=== PATIENT | female | born 1980 | race Caucasian/White ===

== ENCOUNTER 2021-05-16 17:05 | Observation (INO) ==
[2021-05-16] MEDS ORDERED: PIPERACILLIN SODIUM/TAZOBACTAM 4.5 GM in DEXTROSE 5% IN WATER 50 ML IV ONE (17:59)
[2021-05-16] MEDS ORDERED: morphine 4 MG/ML VIAL IV ONE (17:59)
[2021-05-16] MEDS ORDERED: ONDANSETRON 4 MG/2 ML VIAL IV ONE (17:59)
[2021-05-16] MEDS ORDERED: 0.9 % SODIUM CHLORIDE 1,000 ML IV ONE ×2 (17:59→18:01)
--- NOTE | 2021-05-16 18:02 | Emergency Department Note ---
HPI General Chief complaint: Abdominal Pain Stated complaint: Abdominal Pain Time Seen by Provider: 05/16/21 17:59 Source: patient Mode of arrival: ambulatory Limitations: no limitations History of Present Illness HPI Narrative: 40-year-old female with no abdominal surgical history presents with abdominal pain since Sunday. Nausea decreased appetite. No vomiting. Normal stools. No urinary symptoms of dysuria urgency frequency hematuria. No fevers or chills. States that it initially started vague mid abdomen and then began to migrate right lower quadrant. Seen as an outpatient. Labs urine were obtained as well as an outpatient CT scan. Labs did show leukocytosis at 19,000. Otherwise unremarkable. Urine analysis showed blood no infection. was negative. CT abdomen pelvis did show a simple appendicitis. No mention of perforation abscess. And she was sent to the ER for further evaluation. Has been taking [id number] Excedrin for pain control Related Data Home Medications Medication Instructions Recorded Confirmed lamotrigine 100 mg tablet 200 mg PO BID tab 06/16/20 05/16/21 (Lamictal) buspirone 5 mg tablet 5 mg PO BID 05/16/21 05/16/21 clonazepam 0.5 mg tablet See Rx Instructions PO QHS tab 05/16/21 05/16/21 gabapentin 300 mg capsule 100 mg PO BID cap 05/16/21 05/16/21 lithium carbonate 750 mg PO QHS 05/16/21 05/16/21 Allergies Allergy/AdvReac Type Severity Reaction Status Date / Time clindamycin [From Cleocin] Allergy Intermediate Unknown Verified 05/16/21 17:10 Review of Systems ROS ROS Narrative: 10 point review of system is otherwise negative except as mentioned in HPI. PFSH Narrative Patient History Narrative: Narrative: Medical/Surgical/Family History All Active Problems RLQ abdominal pain (Acute) GERD (gastroesophageal reflux disease) (Acute) IBS (irritable bowel syndrome) (Acute) Fatigue (Chronic) Panic attacks (Chronic) Allergy (Chronic) Weakness (Chronic) GERD (gastroesophageal reflux disease) (Chronic) Bipolar disorder (Chronic) Arthritis (Chronic) Chronic fatigue (Chronic) Headache (Chronic) Insomnia (Chronic) Agoraphobia (Chronic) Depression (Chronic) Anxiety (Chronic) Medical History Agoraphobia Allergy Anxiety Arthritis Bipolar disorder Chronic fatigue Depression Fatigue GERD (gastroesophageal reflux disease) Headache Insomnia Panic attacks Weakness Surgical History H/O breast surgery breast enhancement 2014 No pertinent past surgical history S/P tubal ligation 1999 Family History Mother Heart disease Hypertension Arthritis Father Heart disease Hypertension Diabetes mellitus Brother No problems noted. Other Anxiety disorder Depression Social History Smoking Status: Current every day smoker Alcohol Intake Frequency: a few times a month Substance Use: does not use Exam Narrative Narrative: (Please note that portions of this note may have been completed with a voice recognition program. Efforts were made to edit the dictations but occasionally words are mis-transcribed) CONSTITUTIONAL: Well-nourished well-hydrated adult female weight is 66 kg. Resting comfortably. Not in acute distress. Non toxic. Awake alert and oriented x3. Cooperative, follows commands. HEAD: Normocephalic. Atraumatic. EYES: EOMI ENT: Mask NECK: Supple. Full range of motion. Trachea midline CARDIOVASCULAR: Adequate peripheral perfusion. S1-S2. Regular rate and rhythm. No murmurs rubs gallops. No JVD. No lower extremity edema. +2 radial pulses bilaterally. PULMONARY: Nonlabored. Speaking full sentences. Clear to auscultation bilaterally. No rhonchi wheeze or crackles. ABDOMINAL: Soft. Nondistended. Positive bowel sounds. Right lower quadrant tenderness with mild guarding. No rebound or rigidity. No CVA tenderness EXTREMITIES: No gross deformities. Moves all 4 extremities with good strength and tone. SKIN: Warm and dry. No rash. No petechiae. NEUROLOGY: Sensation is intact. No gross focal deficits. GCS of 15 General Limitations: no limitations Course Vital Signs Vital signs: Vital Signs Temperature 37.4 C H 05/16/21 17:05 Pulse Rate 94 H 05/16/21 17:05 Respiratory Rate 18 05/16/21 17:05 Blood Pressure 113/66 05/16/21 17:05 Pulse Oximetry (%) 98 05/16/21 17:05 Temperature 37.4 C H 05/16/21 17:05 Pulse Rate 95 H 05/16/21 17:41 Respiratory Rate 18 05/16/21 17:05 Blood Pressure 100/67 05/16/21 17:41 Pulse Oximetry (%) 96 05/16/21 17:41 MDM MDM Narrative Medical decision making narrative: Differential diagnosis includes acute appendicitis perforation abscess ectopic UTI pyelonephritis stone colitis gas constipation etc. I did review the CT scan. Again does show simple acute appendicitis. Free fluid in the pelvis. However denies any symptoms. Blood cultures were sent. IV fluids Zofran morphine n.p.o. Zosyn. Covid swab was sent. She was updated on the results clinical impressions treatment plan to admit for appendectomy. She is agreeable questions have been answered at length. Significant other is at bedside. Dr. Vasquez was spoken to and does accept patient to his service Final Impressions: 1. Acute appendicitis Disposition: admit med sx Condition: fair Discharge Plan Patient/Caregiver Discharge Instructions Pt seen by EMPLOYEE BENEFITS ADMINISTRATOR/PA only: No Patient Disposition: Xfer As Inpt ([facility]) Follow up with: Carmen Vasquez ARNP [Primary Care Provider] - Prescriptions: No Action lamotrigine [Lamictal] 100 mg tablet 200 mg PO BID 0RF Rx Instructions: 200 mg PO QAM with the 2 PO QHS; clonazepam 0.5 mg tablet See Rx Instructions PO QHS 0RF Rx Instructions: 1 PO every day at bedtime; lithium carbonate 750 mg PO QHS 0RF gabapentin 300 mg capsule 100 mg PO BID 0RF Rx Instructions: 100mg AM, 300mg PM buspirone 5 mg tablet 5 mg PO BID 0RF
--- NOTE | 2021-05-16 20:09 | General Surg History&Physical ---
HPI History of Present Illness Patient information: Note initiated : 05/16/21 at 8:03 pm Service Date, if different from initiated Date: [] Patient: Sheela Main a 40 y/o F admitted on for Abdominal Pain. Chief Complaint: [] Chief complaint: Right lower quadrant abdominal pain History of present illness: Ms. Main is a 40 year old F with history of onset of diffuse abdominal pain on Sunday. The pain became much worse yesterday. She had nausea but no vomiting. She finally decided to be seen in the urgent care clinic. Evaluation there revealed a tender lower abdomen. White blood count was 19,[address] showed acute appendicitis. Patient is admitted and will have appendectomy in the morning. Review of Systems All systems: reviewed and no additional remarkable complaints except as stated Gastrointestinal Gastrointestinal: Present change in bowel habits, heartburn and nausea Psychiatric Psychiatric: Present abnormal sleep pattern, anxiety, depression, panic attacks and other (Bipolar disorder) Additional comments: Chronic fatigue syndrome PFSH PFSH All Active Problems (Updated 05/16/21 @ 20:09 by Clary Vasquez MD) Acute appendicitis (Acute) RLQ abdominal pain (Acute) GERD (gastroesophageal reflux disease) (Acute) IBS (irritable bowel syndrome) (Acute) Fatigue (Chronic) Panic attacks (Chronic) Allergy (Chronic) Weakness (Chronic) GERD (gastroesophageal reflux disease) (Chronic) Bipolar disorder (Chronic) Arthritis (Chronic) Chronic fatigue (Chronic) Headache (Chronic) Insomnia (Chronic) Agoraphobia (Chronic) Depression (Chronic) Anxiety (Chronic) Medical History (Updated 05/16/21 @ 20:09 by Clary Vasquez MD) Agoraphobia Allergy Anxiety Arthritis Bipolar disorder Chronic fatigue Depression Fatigue GERD (gastroesophageal reflux disease) Headache Insomnia Panic attacks Weakness Surgical History H/O breast surgery breast enhancement 2014 No pertinent past surgical history S/P tubal ligation 1999 Family History Mother Heart disease Hypertension Arthritis Father Heart disease Hypertension Diabetes mellitus Brother No problems noted. Other Anxiety disorder Depression Social History marital status: alcohol intake frequency: a few times a month substance use type: does not use seatbelt use: always MEDS/ALLERGIES Home Medications and Allergies Home Medications Medication Instructions Recorded Confirmed Type lamotrigine 100 mg tablet 200 mg PO BID tab 06/16/20 05/16/21 History (Lamictal) buspirone 5 mg tablet 5 mg PO BID 05/16/21 05/16/21 History clonazepam 0.5 mg tablet See Rx Instructions PO QHS tab 05/16/21 05/16/21 History gabapentin 100 mg capsule 100 mg PO DAILY 05/16/21 05/16/21 History gabapentin 300 mg capsule 100 mg PO HS cap 05/16/21 05/16/21 History lithium carbonate 300 mg 300 mg PO QHS 05/17/21 05/17/21 History tablet,extended release lithium carbonate 450 mg 450 mg PO QHS 05/17/21 05/17/21 History tablet,extended release nortriptyline 10 mg capsule 10 mg PO QHS 05/17/21 05/17/21 History amoxicillin 500 mg-potassium 1 tab PO Q8H #20 tab 05/18/21 Rx clavulanate 125 mg tablet (Augmentin) Allergies Allergy/AdvReac Type Severity Reaction Status Date / Time clindamycin [From Cleocin] Allergy Intermediate Unknown Verified 05/16/21 17:10 Physical Examination Vital Signs Vital signs: Temp Pulse Resp BP Pulse Ox 99.4 F H 94 H 18 103/62 97 05/16/21 17:05 05/16/21 19:41 05/16/21 17:05 05/16/21 19:41 05/16/21 19:41 General physical appearance General physical exam: well developed, well nourished, no distress and moderate pain Eyes Eye exam: PERRL and normal ocular movement ENT ENT exam: normal mucosa, no hearing loss and no congestion Head Head exam IM: Present atraumatic, normal inspection and normocephalic Neck Neck exam: no masses, no bruits, trachea midline, no lymphadenopathy and no venous distension Cardiovascular Cardiovascular exam IM: Present normal rate and rhythm, RRR, +S1 and +S2; Absent JVD Respiratory Respiratory exam: normal expansion, normal respiratory effort and clear to auscultation Abdomen Abdomen: Present tender (Right lower quadrant hypogastric tenderness with guarding) and distended Integumentary Integumentary: Present no rash, no growths and no abnormal pigmentation Neurologic Neurologic: Present normal coordination and normal sensation Musculoskeletal Musculoskeletal: Present normal gait and normal posture Psychiatric Psychiatric: Present oriented to time, oriented to person, oriented to place, speech is normal and memory intact Results Labs Result diagrams: 05/17/21 05:08 05/17/21 05:08 Labs: All other labs normal. A/P Assessment and plan (1) Acute appendicitis: Status: Acute (2) Bipolar disorder: Status: Chronic (3) Depression: Status: Chronic (4) Panic attacks: Status: Chronic (5) GERD (gastroesophageal reflux disease): Status: Acute Qualifiers: Esophagitis presence: without esophagitis Qualified Code(s): K21.9 - Gastro-esophageal reflux disease without esophagitis Narrative A/P Narrative: I V ANTIBIOTICS IV HYDRATION ZOSYN 3.375 GM IV Q6H LAPAROSCOPIC APPENDECTOMY IN AM Time Spent With Patient Time: Total time spent is greater than 50% in coordination of care (as documented) at patient's floor/unit and/or counseling patient:
[2021-05-16] MEDS ORDERED: ONDANSETRON 4 MG/2 ML VIAL IV PRN (20:10)
[2021-05-16] MEDS: LACTATED RINGERS 1,000 ML IV SCH (20:26)
[2021-05-16] MEDS ORDERED: LITHIUM CARBONATE PO SCH (21:00)
[2021-05-16] MEDS: lamoTRIgine 100 MG TABLET PO SCH (21:51)
[2021-05-16] MEDS: GABAPENTIN 100 MG CAPSULE PO SCH (21:51)
[2021-05-16] MEDS: busPIRone 5 MG TABLET PO SCH (21:51)
[2021-05-16] MEDS: clonazePAM 0.5 MG TABLET PO SCH (21:51)
[2021-05-16] MEDS: HYDROmorphone 1 MG/ML SYRINGE IV PRN (21:56)
[2021-05-16] MEDS: 0.9 % SODIUM CHLORIDE 10 ML SYRINGE IV SCH (21:58)
[2021-05-17] MEDS: PIPERACILLIN SODIUM/TAZOBACTAM 3.375 GM in DEXTROSE 5% IN WATER 50 ML IV SCH ×4 (00:06→17:59)
[2021-05-17] MEDS: 0.9 % SODIUM CHLORIDE 10 ML SYRINGE IV SCH ×4 (00:07→21:14)
[2021-05-17] MEDS: HYDROmorphone 1 MG/ML SYRINGE IV PRN ×3 (02:23→11:04)
[2021-05-17] MEDS: LACTATED RINGERS 1,000 ML IV SCH ×4 (05:05→21:22)
[2021-05-17] MEDS: lamoTRIgine 100 MG TABLET PO SCH ×2 (07:09→21:10)
[2021-05-17] MEDS: GABAPENTIN 100 MG CAPSULE PO SCH ×2 (07:09→21:11)
[2021-05-17] MEDS: busPIRone 5 MG TABLET PO SCH ×2 (07:09→21:10)
[2021-05-17 07:46] LABS: Basophils # (Auto) 0.03 K/mcL (0.00-0.30); Basophils % (Auto) 0.2 % (0.0-2.0); Eosinophils # (Auto) 0.34 K/mcL (0.00-0.70); Eosinophils % (Auto) 2.5 % (0.0-7.0); Hematocrit 33.3 % (34.1-44.9); Hemoglobin 10.7 g/dL (11.2-15.7); Lymphocytes # (Auto) 1.55 K/mcL (1.50-4.80); Lymphocytes % (Auto) 11.3 % (15.5-49.0); Mean Cell Volume 97.9 fL (80.0-100.0); Mean Corpuscular HGB Conc 32.1 g/dL (31.0-36.0); Mean Platelet Volume 10.1 fL (7.4-10.4); Monocytes # (Auto) 1.14 K/mcL (0.10-0.90); Monocytes % (Auto) 8.3 % (1.0-12.0); Neutrophils % (Auto) 77.7 % (38.0-78.0); Platelet Count 243 K/mcL (140-440); Red Cell Distribution Width 13.4 % (11.5-14.5); WBC 13.7 K/mcL (4.5-11.0)
[2021-05-17 07:52] LABS: ALT/SGPT 8 U/L (<40); AST/SGOT 9 U/L (<32); Albumin 3.2 gm/dL (3.2-5.2); Albumin/Globulin Ratio 1.2 (1.0-2.3); Alkaline Phosphatase 87 U/L (39-117); Bilirubin,Direct < 0.2 mg/dL (0-0.3); Bilirubin,Total 0.4 mg/dL (0.1-1.0); Blood Urea Nitrogen 6 mg/dL (6-20); Carbon Dioxide 22 mmol/L (22-30); Chloride 106 mmol/L (96-108); Globulin 2.6 gm/dL (2.2-3.7); Glomerular Filtration Rate 112; Glucose 86 mg/dL (70-105); Lactate Dehydrogenase 146 U/L (135-225); Phosphorous 2.1 mg/dL (2.5-4.5); Triglycerides 108 mg/dL (<150); Uric Acid 2.9 mg/dL (2.5-8.0)
[2021-05-17] MEDS ORDERED: MAGNESIUM SULFATE 2 GM/50 ML BAG IV ONE (12:00)
[2021-05-17] MEDS ORDERED: DEXAMETHASONE 10 MG/ML VIAL ONE (12:00)
[2021-05-17] MEDS ORDERED: GLYCOPYRROLATE 0.2 MG/ML VIAL IV ONE (12:00)
[2021-05-17] MEDS ORDERED: ROCURONIUM 10 MG/ML ML IV ONE (12:00)
[2021-05-17] MEDS ORDERED: MIDAZOLAM 2 MG/2 ML VIAL ONE (12:00)
[2021-05-17] MEDS ORDERED: LIDOCAINE HCL/PF 100 MG/5 ML SYRINGE IV ONE (12:00)
[2021-05-17] MEDS ORDERED: KETAMINE 50 MG/ML Syringe (ANEST) IV ONE (12:00)
[2021-05-17] MEDS ORDERED: PROPOFOL 200 MG/20 ML VIAL IV ONE (12:00)
[2021-05-17] MEDS ORDERED: fentaNYL 100 MCG/2 ML VIAL IV ONE (12:00)
[2021-05-17] MEDS ORDERED: ONDANSETRON 4 MG/2 ML VIAL ONE (12:00)
[2021-05-17] MEDS ORDERED: HYDROmorphone 1 MG/ML SYRINGE ONE (12:00)
[2021-05-17] MEDS ORDERED: SUGAMMADEX SODIUM 200 MG/2 ML VIAL IV ONE (12:00)
[2021-05-17] MEDS ORDERED: SUCCINYLCHOLINE 20 MG/ML ML IV ONE (12:00)
[2021-05-17] MEDS ORDERED: MEPERIDINE 50 MG/ML VIAL IM PRN (12:17)
[2021-05-17] MEDS ORDERED: METHOCARBAMOL 1,000 MG/10 ML VIAL IV PRN (12:17)
[2021-05-17] MEDS ORDERED: METOPROLOL TARTRATE 5 MG/5 ML VIAL IV PRN (12:17)
[2021-05-17] MEDS ORDERED: fentaNYL 100 MCG/2 ML VIAL IV PRN (12:17)
[2021-05-17] MEDS ORDERED: ONDANSETRON 4 MG/2 ML VIAL IV PRN (12:17)
[2021-05-17] MEDS ORDERED: LABETALOL 5 MG/ML ML IV PRN (12:17)
[2021-05-17] MEDS ORDERED: HYDROmorphone 0.5 MG/0.5 ML SYRINGE IV PRN (12:17)
[2021-05-17] MEDS ORDERED: PROMETHAZINE 25 MG/ML VIAL IM PRN (12:17)
[2021-05-17] MEDS ORDERED: BENZOCAINE/MENTHOL 1 LOZENGE PO PRN (12:17)
[2021-05-17] MEDS ORDERED: FLUMAZENIL 0.1 MG/ML ML IV PRN (12:17)
[2021-05-17] MEDS ORDERED: IPRATROPIUM/ALBUTEROL 3 ML AMPUL.NEB NEB PRN (12:17)
[2021-05-17] MEDS ORDERED: ACETAMINOPHEN 1,000 MG/100 ML BAG IV ONE (12:17)
[2021-05-17] MEDS ORDERED: NALOXONE HCL 0.4 MG/ML VIAL IV PRN (12:17)
[2021-05-17] MEDS ORDERED: LACTATED RINGERS 250 ML IV PRN (12:17)
[2021-05-17] MEDS ORDERED: MEPERIDINE 25 MG/ML VIAL IV PRN (12:17)
[2021-05-17] MEDS ORDERED: LORazepam 2 MG/ML VIAL IV ONE (12:18)
[2021-05-17] MEDS ORDERED: LACTATED RINGERS 1,000 ML IV SCH (12:30)
--- NOTE | 2021-05-17 13:04 | Brief Operative Note ---
Brief Operative Note Date of procedure: 05/17/21 Pre-op diagnosis: ACUTE APPENDICITIS Post-op diagnosis: other (ACUTE NECROTIZING APPENDICITIS) Procedure: LAPAROSCOPIC APPENDECTOMY Grafts/Implants: No (#10 ED DRAIN) Anesthesia: GETA Findings: SEVERELY INFLAMED NECROTIC APPENDIX WITH PHLEGMON Complications: none Surgeon: Clary Vasquez Estimated blood loss (cc): 25 Specimens Removed/Pathology: other (APPENDICEAL FRAGMENTS) Condition: stable Disposition: PACU
[2021-05-17] MEDS ORDERED: ACETAMINOPHEN 1,000 MG/100 ML BAG IV SCH (14:04)
[2021-05-17] MEDS: ACETAMINOPHEN 1,000 MG/100 ML BAG IV SCH (19:02)
[2021-05-17] MEDS ORDERED: NORTRIPTYLINE 10 MG CAPSULE PO SCH (21:00)
[2021-05-17] MEDS ORDERED: GABAPENTIN 300 MG CAPSULE PO SCH (21:00)
[2021-05-17] MEDS ORDERED: LITHIUM CARBONATE 450 MG TAB.SR.12H PO SCH (21:00)
[2021-05-17] MEDS ORDERED: LITHIUM CARBONATE 300 MG PO SCH (21:00)
[2021-05-17] MEDS: clonazePAM 0.5 MG TABLET PO SCH (21:10)
[2021-05-17] MEDS: oxyCODONE HCL 5 MG TABLET PO PRN (21:21)
[2021-05-18] MEDS: PIPERACILLIN SODIUM/TAZOBACTAM 3.375 GM in DEXTROSE 5% IN WATER 50 ML IV SCH ×3 (00:01→12:14)
[2021-05-18] MEDS: ACETAMINOPHEN 1,000 MG/100 ML BAG IV SCH ×3 (00:32→13:31)
[2021-05-18] MEDS: LACTATED RINGERS 1,000 ML IV SCH ×2 (02:53→12:15)
[2021-05-18] MEDS: oxyCODONE HCL 5 MG TABLET PO PRN (04:29)
[2021-05-18] MEDS: 0.9 % SODIUM CHLORIDE 10 ML SYRINGE IV SCH ×2 (05:19→13:44)
--- NOTE | 2021-05-18 08:19 | EKG ---
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 Measurements Intervals [place] Rate: 86 P: 68 MN: 156 QRS: 79 QRSD: 105 T: 16 QT: 430 QTc: 515 Interpretive Statements Sinus rhythm Nonspecific T abnormalities, anterior leads Prolonged QT interval Electronically Signed On 05-18-2021 8:18:56 PDT by Abdirahman Cote D.O. /store/[email or web address]/[id number]
[2021-05-18] MEDS: lamoTRIgine 100 MG TABLET PO SCH (08:53)
[2021-05-18] MEDS: GABAPENTIN 100 MG CAPSULE PO SCH (08:53)
[2021-05-18] MEDS: busPIRone 5 MG TABLET PO SCH (08:53)
--- NOTE | 2021-05-18 13:36 | Discharge Summary ---
Discharge Provider Provider Patient information: Note initiated : 05/18/21 at 1:28 pm Service Date, if different from initiated Date: [] Patient: Sheela Main 40 y/o F admitted on 05/16/21 for Abdominal Pain. Chief Complaint: [] Date of admission: 05/16/21 20:02 Discharge date: 05/18/21 Primary care physician: Carmen Vasquez Admitting clinician: Clary Vasquez Attending physician on admission: Clary Vasquez Consults: 05/16/21 Consult to Physician [CONS] Stat Comment: Consulting Provider: Clary Vasquez Reason For Exam: Physician to Consult Attending physician on discharge: Clary Vasquez Discharging clinician: Clary Vasquez COURSE Hospital Course Hospital course: 40-year-old female who was admitted with 3-day history of right lower quadrant pain. She had a white blood count of 19,[address] evidence of acute appendicitis. She was admitted overnight and treated with antibiotics. She had laparoscopic evaluation yesterday and was found to have a severely inflamed necrotic appendix. Appendectomy was done. The appendix was removed piecemeal but all fragments were removed. A drain was placed because of the severe inflammation. She has done well overnight and has minimal discomfort. She denies nausea and she is tolerating diet and passing flatus without difficulty. Her drainage is serosanguinous. Patient is clinically stable and is discharged home. She will be continued on Augmentin for 7 days. Discharge diagnosis: Acute appendicitis Secondary discharge diagnosis: Bipolar disorder Chronic pain contact GERD Reason for admission: Acute appendicitis Procedures: Laparoscopic appendectomy Pertinent studies/significant findings: CT of abdomen and pelvis Complications: None Time Spent with Patient Time attestation: Total time spent providing and/or coordinating discharge services: Physical Examination Vital Signs Vital signs: Temp Pulse Resp BP Pulse Ox 97.2 F 86 16 99/69 96 05/18/21 11:38 05/18/21 11:38 05/18/21 11:38 05/18/21 11:38 05/18/21 11:38 General physical appearance General physical exam: well developed, well nourished and moderate pain Eyes Eye exam: PERRL and normal ocular movement ENT ENT exam: normal nares, normal mucosa and no congestion Head Head exam IM: Present atraumatic, normal inspection and normocephalic Neck Neck exam: no masses, no bruits, trachea midline, no lymphadenopathy and no venous distension Cardiovascular Cardiovascular exam IM: Present normal rate and rhythm, RRR, +S1 and +S2; Absent JVD Respiratory Respiratory exam: normal expansion, normal respiratory effort and clear to auscultation Abdomen Abdomen: Present soft and tender (Mild tenderness in port sites; serosanguineous FILIBERTO drainage) Integumentary Integumentary: Present no rash, no growths and no abnormal pigmentation Neurologic Neurologic: Present normal coordination and normal sensation Musculoskeletal Musculoskeletal: Present normal gait and normal posture Psychiatric Psychiatric: Present oriented to time, oriented to person, oriented to place, speech is normal and memory intact Discharge Plan Patient/Caregiver Discharge Instructions Activity: increase activity as tolerated Diet: Regular Diet Prescriptions: New amoxicillin-pot clavulanate [Augmentin] 500-125 mg tablet 1 tab PO Q8H Qty: 20 0RF No Action lamotrigine [Lamictal] 100 mg tablet 200 mg PO BID 0RF Rx Instructions: 200 mg PO QAM with the 2 PO QHS; clonazepam 0.5 mg tablet See Rx Instructions PO QHS 0RF Rx Instructions: 1 PO every day at bedtime; gabapentin 300 mg capsule 100 mg PO HS 0RF Rx Instructions: 100mg AM, 300mg PM buspirone 5 mg tablet 5 mg PO BID 0RF gabapentin 100 mg Capsule 100 mg PO DAILY 0RF Rx Instructions: 100 mg in am, 300 mg HS lithium carbonate 300 mg Tablet Extended Release 300 mg PO QHS 0RF Rx Instructions: TAKE W/450MG CR = 750MG lithium carbonate 450 mg Tablet Extended Release 450 mg PO QHS 0RF Rx Instructions: TAKE W/300MG CR = 750MG nortriptyline 10 mg Capsule 10 mg PO QHS 0RF Follow Up Plan Follow up with: Clary Vasquez MD [Physician] - (Make an appointment in my office to be seen in 2 weeks;) Carmen Vasquez ARNP [Primary Care Provider] - Patient Disposition: Home, Self-Care Plan of Treatment: Augmentin 500 mg twice daily Prognosis: Good Rehab Potential: Good I certify that the patient requires SNF services: No Overall status at discharge: patient is progressing back to baseline Discharge Orders: Discharge Order (Routine); Ordered 05/18/21 Ordered By: Clary Vasquez Pending Pending Pending: Resuscitation Status Resuscitate (Full Code) Diet Regular Diet Start Wed Mar 16 0800 Buspirone HCl (Buspirone 5 Mg Tablet) 5 mg PO BID [facility] Last Admin: 05/18/21 08:53 Dose: 5 mg Documented by: Cosigned by: KRYSTLE Admin: 05/17/21 21:10 Dose: 5 mg Documented by: Admin: 05/17/21 07:09 Dose: Not Given Documented by: Admin: 05/16/21 21:51 Dose: 5 mg Documented by: VALERIE Clonazepam (Clonazepam 0.5 Mg Tablet) 0.5 mg PO QHS [facility] Last Admin: 05/17/21 21:10 Dose: 0.5 mg Documented by: Admin: 05/16/21 21:51 Dose: 0.5 mg Documented by: VALERIE Gabapentin (Gabapentin 100 Mg Capsule) 100 mg PO BID [facility] Last Admin: 05/18/21 08:53 Dose: 100 mg Documented by: Cosigned by: KRYSTLE Admin: 05/17/21 21:11 Dose: Not Given Documented by: Admin: 05/17/21 07:09 Dose: Not Given Documented by: Admin: 05/16/21 21:51 Dose: 100 mg Documented by: VALERIE Gabapentin (Gabapentin 300 Mg Capsule) 300 mg PO [facility] Last Admin: 05/17/21 21:10 Dose: 300 mg Documented by: VALERIE Hydromorphone HCl (Hydromorphone 1 Mg/Ml Syringe) 1 mg IV Q2HP PRN; Protocol PRN Reason: Per Pain Protocol Last Admin: 05/17/21 11:04 Dose: 1 mg Documented by: Admin: 05/17/21 06:01 Dose: 1 mg Documented by: Admin: 05/17/21 02:23 Dose: 1 mg Documented by: Admin: 05/16/21 21:56 Dose: 1 mg Documented by: VALERIE Lactated Ringer's (Lactated Ringers) 1,000 mls @ 125 mls/hr IV .Q8H [facility] Last Admin: 05/18/21 12:15 Dose: 125 mls/hr Documented by: Infusion: 05/18/21 12:15 Dose: 0 mls/hr Documented by: Admin: 05/18/21 02:53 Dose: 125 mls/hr Documented by: Infusion: 05/18/21 00:32 Dose: 125 mls/hr Documented by: Admin: 05/17/21 21:22 Dose: Not Given Documented by: Admin: 05/17/21 16:32 Dose: 125 mls/hr Documented by: Admin: 05/17/21 14:12 Dose: Not Given Documented by: Infusion: 05/17/21 13:05 Dose: 125 mls/hr Documented by: Admin: 05/17/21 05:05 Dose: 125 mls/hr Documented by: Infusion: 05/17/21 04:26 Dose: 125 mls/hr Documented by: Admin: 05/16/21 20:26 Dose: 125 mls/hr Documented by: VALERIE Piperacillin Sod/Tazobactam (Sod 3.375 gm/ Dextrose) 50 mls @ 100 mls/hr IV Q6H [facility]; Protocol Last Infusion: 05/18/21 12:46 Dose: 0 mls/hr Documented by: Admin: 05/18/21 12:14 Dose: 100 mls/hr Documented by: Infusion: 05/18/21 08:05 Dose: 0 mls/hr Documented by: Admin: 05/18/21 07:33 Dose: 100 mls/hr Documented by: Infusion: 05/18/21 00:33 Dose: 0 mls/hr Documented by: Admin: 05/18/21 00:01 Dose: 100 mls/hr Documented by: Infusion: 05/17/21 18:35 Dose: 0 mls/hr Documented by: Admin: 05/17/21 17:59 Dose: 100 mls/hr Documented by: Infusion: 05/17/21 11:49 Dose: 0 mls/hr Documented by: Admin: 05/17/21 11:07 Dose: 100 mls/hr Documented by: Infusion: 05/17/21 07:26 Dose: 0 mls/hr Documented by: Admin: 05/17/21 06:46 Dose: 100 mls/hr Documented by: Infusion: 05/17/21 00:49 Dose: 0 mls/hr Documented by: Admin: 05/17/21 00:06 Dose: 100 mls/hr Documented by: VALERIE Acetaminophen (Ofirmev) 1,000 mg in 100 mls @ 200 mls/hr IV Q6H [facility] Stop: 05/18/21 18:59 Last Infusion: 05/18/21 08:50 Dose: 0 mls/hr Documented by: Admin: 05/18/21 08:20 Dose: 200 mls/hr Documented by: Cosigned by: Infusion: 05/18/21 01:20 Dose: 0 mls/hr Documented by: Admin: 05/18/21 00:32 Dose: 200 mls/hr Documented by: Infusion: 05/17/21 19:35 Dose: 0 mls/hr Documented by: Admin: 05/17/21 19:02 Dose: 200 mls/hr Documented by: VALERIE Lamotrigine (Lamotrigine 100 Mg Tablet) 200 mg PO BID [facility] Last Admin: 05/18/21 08:53 Dose: 200 mg Documented by: Cosigned by: [email or web address] Admin: 05/17/21 21:10 Dose: 200 mg Documented by: Admin: 05/17/21 07:09 Dose: Not Given Documented by: Admin: 05/16/21 21:51 Dose: 200 mg Documented by: VALERIE Nortriptyline HCl (Nortriptyline 10 Mg Capsule) 10 mg PO QHS [facility] Last Admin: 05/17/21 21:10 Dose: 10 mg Documented by: VALERIE Oxycodone HCl (Oxycodone Hcl 5 Mg Tablet) 10 mg PO Q4HP PRN; Protocol PRN Reason: Per Pain Protocol Last Admin: 05/18/21 04:29 Dose: 10 mg Documented by: Admin: 05/17/21 21:21 Dose: 10 mg Documented by: VALERIE [place] Carbonate Er (450 Mg Tab) 1 dose PO [facility] Last Admin: 05/17/21 21:09 Dose: 1 dose Documented by: VALERIE [place] Carbonate Er (300 Mg Tab) 1 dose PO [facility] Last Admin: 05/17/21 21:09 Dose: 1 dose Documented by: VALERIE Sodium Chloride (0.9 % Sodium Chloride 10 Ml Syringe) 10 ml IV Q8 [facility] Last Admin: 05/18/21 05:19 Dose: Not Given Documented by: Admin: 05/17/21 21:14 Dose: Not Given Documented by: Admin: 05/17/21 12:21 Dose: Not Given Documented by: Admin: 05/17/21 05:05 Dose: Not Given Documented by: Admin: 05/17/21 00:07 Dose: 10 ml Documented by: Admin: 05/16/21 21:58 Dose: Not Given Documented by: VALERIE Shift Summary 05/18/21 02:07 Shift Summary by Yoly Castillo Primary Diagnosis: appendicitis Registration Status:observation Day of Hospitalization:admitted 05/16 Date of Surgery (if applicable): 05/17 Pertinent Medical Dx/Issue(s):CT abdomen pelvis did show a simple appendicitis. Interventions (wounds, diuresis, etc): pain meds, fluids, antibiotics Vital Signs with Trends: VSS on RA Neuro/Mental Status: AOX4 Meds (abo, pain, BP, etc):oxycodone and dilaudid prn, scheduled ofirmev and zosyn Lines/Tubes: IV fluids O2, liter flow/saturations: N/A Lab/Rad results: Date of last BM: Elimination (remove Taylor within 24h if appropriate): bathroom Recommendations/questions for MD: Activity: Up ad omid Expected date of discharge: TBD Discharge Plan (needs, disposition, etc): TBD Patient has 2 lap sites, and 1 FILIBERTO drain (dressing changed during the night d/t leaking). Patient had no complaints of nausea and only minimal pain. Initialized on 05/18/21 02:07 - END OF NOTE
--- NOTE | 2021-05-25 11:18 | Operative Note ---
DATE OF OPERATION: 05/17/2021 PREOPERATIVE DIAGNOSIS: Acute appendicitis. POSTOPERATIVE DIAGNOSIS: Acute necrotizing appendicitis. PROCEDURE: Laparoscopic appendectomy. SURGEON: Clary Vasquez M.D. FINDINGS: Severely inflamed, necrotic appendix with large phlegmon. DESCRIPTION OF PROCEDURE: Under general anesthesia, the patient's abdomen was prepped and draped in a sterile field. A supraumbilical incision was made and Veress needle was inserted uneventfully. Abdomen was insufflated with 3 liters of CO2. A 12 mm port was placed. Laparoscope was placed. There were dense adhesions in the right lower quadrant with most of them medial to the cecum. The cecum appeared to be adherent to the lateral wall. Under direct vision, a 5 mm port was placed in the suprapubic midline and a 12 mm port was placed in the left lower quadrant. Using blunt dissection, the acute inflammatory reaction between the omentum, cecum, and small bowel were dissected away from the lateral pelvic gutter on the right side. This dissection was continued down into the pelvis. Next, the cecum and right colon were identified. Dissection was started distally along the ascending colon and then continued down to the base of the cecum. At the base of the cecum, there was a large inflammatory mass. It encompassed small bowel loops, the colon, and the inflamed appendix. Dissection was carried out using Kittner dissectors so as not to harm any viscera. The base of the cecum was identified and the confluence of the taenia was identified. There was intense inflammatory reaction in this area. The appendix was identified exiting from the base of the cecum. The mesoappendix was severely inflamed along with the appendix. In trying to grasp the structure, it fractionated in multiple parts. I was able to grasp it at the base using a [place] dissector. All surrounding tissue was dissected and the base was then grasped with a self-retaining grasper. It was transected using the Endo RENÉ stapler. The tissue that was transected appeared to be viable. There were about five fragments of the appendix that were removed. There was no free spillage of fecal contaminant. Copious irrigation was carried out. The other structures were dissected to make sure that there was no residual abscess. A #10 Juan J drain was placed in the base of this cavity that was created by the phlegmon. The drain was brought out through the suprapubic port. CO2 was allowed to escape from the abdomen and the ports were removed. The fascia at the umbilicus was closed with interrupted 0 Vicryl. The skin incisions were closed with gilbert. The drain site was closed with 2-0 nylon, and the drain was secured with 2-0 nylon. Dressings were placed. The patient was awakened, transferred to a bed, and taken to the postanesthetic care unit in satisfactory condition. LCS:devin Job ID: [id number] Doc ID: [id number] Clary Vasquez M.D.
== END 2021-05-18 14:40 | disposition home or self-care (01) ==
LOC: ED 17:05 → MEDSUR 17:05
PROVIDERS: ADMIT Family Medicine Adult Medicine; ATTEND Family Medicine Adult Medicine